=== PATIENT | male | born 1960 | race Caucasian/White ===

== ENCOUNTER 2024-01-05 18:48 | Observation (INO) | payer BC ==
[~2024-01-05] VITALS: Ht 218.4 cm; Wt 93.3 kg
[2024-01-05] MEDS ORDERED: KEYT1INJ IV (19:13)
[2024-01-05] MEDS ORDERED: ATOR1TAB19 PO (19:13)
[2024-01-05] MEDS ORDERED: LOSA50TA28 PO (19:13)
[2024-01-05] MEDS ORDERED: LANS15CA PO (19:13)
[2024-01-05] MEDS ORDERED: LEXA1TAB PO (19:13)
[2024-01-05 19:40] LABS: BASO % 0.4 % (0.0-1.0); EOS # 0.1 10^3/uL (0.0-0.5); EOS % 0.6 % (0.0-3.0); HEMATOCRIT 37.5 % (42.0-52.0); HEMOGLOBIN 13.1 g/dl (13.5-17.5); LYMPH # 0.7 10^3/uL (1.5-5.0); LYMPH % 8.5 % (24.0-44.0); MEAN CORPUSCULAR HEMOGLOBIN 32.5 pg (27.0-33.0); MEAN CORPUSCULAR HGB CONC 34.9 g/dl (32.0-36.5); MEAN CORPUSCULAR VOLUME 93.1 fl (80.0-96.0); MONO # 0.5 10^3/uL (0.0-0.8); NEUTROPHILS # 6.5 10^3/uL (1.5-8.5); NEUTROPHILS % 83.9 % (36.0-66.0); PLATELET COUNT, AUTOMATED 159 10^3/uL (150-450); RED BLOOD COUNT 4.03 10^6/uL (4.30-6.10); WHITE BLOOD COUNT 7.7 10^3/uL (4.0-10.0)
[2024-01-05 19:52] LABS: INR 1.09; PROTHROMBIN TIME 13.7 SECONDS (12.5-14.5)
[2024-01-05 20:05] LABS: BLOOD UREA NITROGEN 14 MG/DL (9-23); CALCIUM LEVEL 8.6 MG/DL (8.3-10.6); CARBON DIOXIDE LEVEL 21 MMOL/L (20-31); CHLORIDE LEVEL 106 MMOL/L (98-107); CK-MB VALUE MASS < 1.0 NG/ML (<3.6); CREATININE FOR GFR 0.77 MG/DL (0.70-1.30); FREE T4 1.07 NG/DL (0.89-1.76); GLOMERULAR FILTRATION RATE > 60.0 (>49); GLUCOSE, FASTING 107 MG/DL (74-106); MAGNESIUM LEVEL 1.9 MG/DL (1.8-2.4); POTASSIUM SERUM 3.9 MMOL/L (3.5-5.1); SODIUM LEVEL 136 MMOL/L (136-145); THYROID STIMULATING HORMONE 0.943 uIU/ML (0.55-4.78)
[2024-01-05 20:06] LABS: CPK CREATINE PHOSPHOKINASE 40 U/L (46-171)
[2024-01-05 21:06] LABS: CK-MB VALUE MASS < 1.0 NG/ML (<3.6)
[2024-01-05 21:09] LABS: CPK CREATINE PHOSPHOKINASE 44 U/L (46-171); MB/CK RELATIVE INDEX 2.27 (< OR =4)
[2024-01-05] MEDS ORDERED: LANS30CA93 PO (23:20)
[2024-01-05] MEDS ORDERED: CETI-24 PO (23:20)
[2024-01-05] MEDS ORDERED: HOME MED LIST COMPLETE! XX SCH (23:25)
[2024-01-05 23:28] VITALS: BP 140/86; TEMP 96.8; O2SAT 96
[2024-01-06] MEDS ORDERED: LORazepam 2 MG TAB PO PRN (02:45)
[2024-01-06 04:00] VITALS: BP 131/82; TEMP 98.1; O2SAT 96
[2024-01-06 07:17] LABS: HEMATOCRIT 39.2 % (42.0-52.0); HEMOGLOBIN 13.5 g/dl (13.5-17.5); MEAN CORPUSCULAR HEMOGLOBIN 31.9 pg (27.0-33.0); MEAN CORPUSCULAR HGB CONC 34.4 g/dl (32.0-36.5); MEAN CORPUSCULAR VOLUME 92.7 fl (80.0-96.0); PLATELET COUNT, AUTOMATED 158 10^3/uL (150-450); RED BLOOD COUNT 4.23 10^6/uL (4.30-6.10); WHITE BLOOD COUNT 4.5 10^3/uL (4.0-10.0)
[2024-01-06 07:40] LABS: BLOOD UREA NITROGEN 12 MG/DL (9-23); CALCIUM LEVEL 8.5 MG/DL (8.3-10.6); CARBON DIOXIDE LEVEL 29 MMOL/L (20-31); CHLORIDE LEVEL 108 MMOL/L (98-107); CREATININE FOR GFR 0.75 MG/DL (0.70-1.30); GLOMERULAR FILTRATION RATE > 60.0 (>49); GLUCOSE, FASTING 100 MG/DL (74-106); POTASSIUM SERUM 3.8 MMOL/L (3.5-5.1); SODIUM LEVEL 141 MMOL/L (136-145)
[2024-01-06 08:00] VITALS: BP 129/81; TEMP 98.2; O2SAT 96
[2024-01-06] MEDS: ESCITALOPRAM OXALATE 10 MG TAB (LEXAPRO) PO SCH (08:49)
[2024-01-06] MEDS: THIAMINE 100 MG TAB PO SCH (08:49)
[2024-01-06] MEDS: CETIRIZINE (ZyrTEC) 10 MG TAB PO SCH (08:49)
[2024-01-06] MEDS: PANTOPRAZOLE 20 MG TAB PO SCH (08:49)
[2024-01-06] MEDS: LOSARTAN 50MG TABLET PO SCH (08:50)
[2024-01-06] MEDS: ATORVASTATIN 10 MG TAB PO SCH (08:50)
[2024-01-06] MEDS: FOLIC ACID 1MG TAB PO SCH (08:50)
[2024-01-06] MEDS: MULTIVITAMINS/MINERALS THERAP 1 TAB PO SCH (08:50)
[2024-01-06] MEDS: ENOXAPARIN 40MG/0.4ML SYRINGE (J1650 PER 10MG) SC SCH (08:51)
[2024-01-06 12:00] VITALS: BP 134/84; TEMP 98.1; O2SAT 96
[2024-01-06 12:39] LABS: HEMOGLOBIN 13.7 g/dl (13.5-17.5); MEAN CORPUSCULAR HEMOGLOBIN 32.9 pg (27.0-33.0); MEAN CORPUSCULAR HGB CONC 35.1 g/dl (32.0-36.5); MEAN CORPUSCULAR VOLUME 93.5 fl (80.0-96.0); PLATELET COUNT, AUTOMATED 163 10^3/uL (150-450); RED BLOOD COUNT 4.17 10^6/uL (4.30-6.10); WHITE BLOOD COUNT 4.5 10^3/uL (4.0-10.0)
[2024-01-06 13:07] LABS: BLOOD UREA NITROGEN 10 MG/DL (9-23); CARBON DIOXIDE LEVEL 28 MMOL/L (20-31); CHLORIDE LEVEL 108 MMOL/L (98-107); CREATININE FOR GFR 0.73 MG/DL (0.70-1.30); GLOMERULAR FILTRATION RATE > 60.0 (>49); GLUCOSE, FASTING 97 MG/DL (74-106); SODIUM LEVEL 140 MMOL/L (136-145)
[2024-01-06 14:00] VITALS: BP 134/84
== END 2024-01-06 15:30 | disposition home or self-care (01) ==
LOC: M ED 18:48 → M ED INP 22:24 → INTOOBSV 22:24 → M MSPAV 23:22
PROVIDERS: ADMIT Family Medicine; ATTEND Internal Medicine
DX: R55 Syncope and collapse (principal); I10 Essential (primary) hypertension; E78.5 Hyperlipidemia, unspecified; K21.9 Gastro-esophageal reflux disease without esophagitis; C43.9 Malignant melanoma of skin, unspecified; Z85.118 Personal history of other malignant neoplasm of bronchus and lung; Z79.620 Long term (current) use of immunosuppressive biologic; Z79.899 Other long term (current) drug therapy
CPT/HCPCS: 36415; 70450; 71045; 80048; 82550; 82553; 83605; 83735; 84439; 84443; 84484; 85025; 85027; 85610; 85730; 93005; 93041; 93306; 94760; 96372; 99285; J1650